=== PATIENT | female | born 1970 | race Caucasian/White ===

== ENCOUNTER → 2022-01-10 11:27 | Outpatient (BNVA) | payer OTHER, MEDICAID, SELFPAY | PROVIDERS: PCP Family Medicine; Visit Provider Family Medicine | DX: Z76.89 Persons encountering health services in other specified circumstances (principal); E03.9 Hypothyroidism, unspecified; E11.9 Type 2 diabetes mellitus without complications; I10 Essential (primary) hypertension | CPT/HCPCS: 80053; 80061; 84439; 84443; 85025 ==

== ENCOUNTER 2022-02-24 08:05 | Outpatient (CLI) | payer MEDICAID, SELFPAY ==
--- NOTE | 2022-02-24 08:12 | MM_ITS ---
WS: [id number] DIAGNOSTIC BILATERAL DIGITAL BREAST TOMOSYNTHESIS MAMMOGRAPHY WITH CAD HISTORY: L breast cyst, R breast Focal asymmetry. Prior negative RIGHT breast biopsy. COMPARISON: 09/08/2021, 09/01/2021, 10/07/2021 TECHNIQUE: Bilateral craniocaudad, mediolateral oblique, and mediolateral views are submitted with to mosynthesis and SM. Computer aided detection utilized. Breast composition: The breasts are heterogeneously dense, which may obscure small masses. Scattered densities in each breast. No suspicious masses are identified. Previously described asymmetry in the RIGHT breast near 9:00 is no longer present. There is an adjacent biopsy clip. No mass within the LE FT breast. No nipple retraction. MM/[place] [id number] IMPRESSION: BI-RADS: 2-Benign FOLLOW UP: 1 Year Follow-up
== END 2022-02-24 08:06 | disposition home or self-care (01) ==
PROVIDERS: PCP Family Medicine; Visit Provider Family Medicine
DX: N60.02 Solitary cyst of left breast (principal); N64.89 Other specified disorders of breast
CPT/HCPCS: 77062; G0279

== ENCOUNTER → 2022-05-05 15:15 | Outpatient (BNVA) | payer BC, MEDICAID, SELFPAY | PROVIDERS: PCP Family Medicine; Visit Provider Family Medicine | DX: E78.5 Hyperlipidemia, unspecified (principal); F41.1 Generalized anxiety disorder; E11.9 Type 2 diabetes mellitus without complications; E03.9 Hypothyroidism, unspecified; I10 Essential (primary) hypertension; G47.00 Insomnia, unspecified; I25.10 Atherosclerotic heart disease of native coronary artery without angina pectoris; Z68.41 Body mass index [BMI] 40.0-44.9, adult; M25.561 Pain in right knee; M25.562 Pain in left knee | CPT/HCPCS: 80053; 83036; 85025 ==

== ENCOUNTER 2022-08-06 09:45 | Emergency (ER) | payer BC, MEDICAID, SELFPAY ==
[2022-08-06 09:56] VITALS: BP 171/104; PULSE 66; TEMP 36.8; O2SAT 94; BMI 41.0
--- NOTE | 2022-08-06 10:21 | XRR_ITS ---
PROCEDURE INFORMATION: Exam: XR Chest Exam date and time: 08/06/2022 10:27 AM Age: 51 years old Clinical indication: Shortness of breath. TECHNIQUE: Imaging protocol: Radiologic exam of the chest. Views: 1 view. COMPARISON: No relevant prior studies available. FINDINGS: Lungs: No pulmonary vascular congestion, pulmonary edema or pneumonia. Pleural spaces: No pleural effusion or pneumothorax. Heart/Mediastinum: The cardiac silhouette is not enlarged. The mediastinal contours are normal. Diaphragm: Mild elevation of the right hemidiaphragm. Bones/joints: No acute osseous abnormality. XR/XR chest 1V 14086 IMPRESSION: No acute finding.
--- NOTE | 2022-08-06 10:21 | ECG_ITS ---
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 Measurements Intervals [place] Rate: 54 P: 24 SD: 216 QRS: -40 QRSD: 109 T: -5 QT: 393 QTc: 375 Interpretive Statements SINUS BRADYCARDIA WITH FIRST DEGREE AV BLOCK LEFT AXIS DEVIATION [QRS AXIS < -30] LOW QRS VOLTAGE IN PRECORDIAL LEADS [QRS DEFLECTION < 1.0 mV IN CHEST LEADS] MINIMAL VOLTAGE CRITERIA FOR LVH, CONSIDER NORMAL VARIANT [MEETS CRITERIA IN ONE OF: R(aVL), S(V1), R(V5), R(V5/V6)+S(V1)] POSSIBLE ANTERIOR MYOCARDIAL INFARCTION , OF INDETERMINATE AGE [30 ms Q WAVE IN V3/V4, OR R < 0.2 mV IN V4] No previous ECG available for comparison Electronically Signed On 08-06-2022 21:07:52 CDT by Tea Campbell M.D. [id number]
--- NOTE | 2022-08-06 11:04 | ED_ITS ---
HPI - General Adult General: Chief complaint: General Medical Stated complaint: hands/feet itch/sob/fatigue Time Seen by Provider: 08/06/22 10:16 Source: patient and family Mode of arrival: ambulatory Limitations: no limitations History of Present Illness: Patient presents emergency department today accompanied by significant other for evaluation treatment of various symptoms. Patient states that for the last several weeks she has been experiencing symptoms of itching to both the palmar and dorsal aspect of her hands and the tops of her feet. She states it is not consistent and comes and goes. She states will often affect just 1 or 2 fingers or, can be her entire hand. She denies any development of redness or rash. Patient also states she has felt generally unwell and uneasy. She has been feeling more short of breath-especially exertional and mentions a previous history of non-STEMI for which she currently has a cardiac stent. She is not having chest pains. She also complains of right-sided neck pain developing today. She feels the area is swollen. She denies any other recent upper respiratory symptoms including nasal congestion, sore throat, or cough. She does report recurrent night sweats. She does complain of some polyarthralgia- especially in the knees. Patient indicates that her mother was diagnosed with lymphoma and her brother was diagnosed with tongue cancer. She states she is very concerned and feels like something is wrong. Review of Systems General: Reports: 10 or more systems reviewed and unremarkable except in HPI and below PFSH ED PFSH: Family History Mother Cancer mother Father Cancer skin Brother Cancer head and neck Other CAD (coronary artery disease) Dementia Diabetes Hyperlipidemia Hypertension Stroke Denies family history of Clotting disorder Psychiatric illness Chronic kidney disease (CKD) Anesthesia complication Bleeding disorder Lung disease Social History Smoking and tobacco status: never smoked Alcohol intake: never Substance/Drug Use: never Adopted: No Caregiver/support person: No Marital status: Number of children: 5 Current occupational status: employed 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 Special tim needs: No Agree to transfusion: Yes Female Reproductive History: Spontaneous abortions: No Physical Exam Const: COMMON NORMALS: no acute distress, patient oriented x3, no limitations and alert HENMT: COMMON NORMALS: normocephalic, atraumatic, hearing grossly normal bilaterally, Normal external nose present and moist oral mucous membranes HEAD & SCALP: normocephalic and atraumatic NOSE: Normal external nose present Eye: COMMON NORMALS: Equal, round and reactive pupils present, EOMs intact bilaterally and conjunctivae normal CONJUNCTIVA: Yes conjunctivae normal P UPIL: Yes Equal, round and reactive pupils present Neck/C-Spine: THYROID: not diffusely enlarged Lymph: LYMPHATIC: no lymphadenopathy noted Resp: COMMON NORMALS: normal respiratory effort, No retractions, No use of accessory muscles and clear to auscultation bilaterally AUSCULTATION: clear to auscultation bilaterally Cardio: COMMON NORMALS: regular rate and regular rhythm RATE: regular rate RHYTHM: regular rhythm GI: COMMON NORMALS: Normal to inspection, nondistended, normoactive bowel sounds present, Soft to palpation and non-tender PALPATION: Yes Soft to palpation Extremity: COMMON NORMALS: full ROM, capillary refill normal and no clubbing, cyanosis or edema Neuro: COMMON NORMALS: patient oriented x3 SENSORIUM/ORIENTATION: Yes alert Skin: COMMON NORMALS: turgor normal, no jaundice and no petechiae; negative for no rashes or lesions noted (No rash but abnormal lesions on upper extremities) GENERAL SKIN EXAM: rashes and/or lesions noted (No rash but abnormal lesions on upper extremities) and turgor normal Course Vital Signs: Vital signs: Vital Signs Temperature 98.3 F 08/06/22 09:56 Pulse Rate 50 L 08/06/22 14:39 Blood Pressure 141/99 08/06/22 14:39 Pulse Oximetry 94 08/06/22 14:39 Oxygen Delivery Me thod Room Air 08/06/22 14:00 MDM - General Adult Medical Decision Making Patient presented to the emergency department today for evaluation treatment of multiple and varied symptoms. Patient seems mostly to have anxiety regarding recent issues with cancer throughout her family. However, patient's lab work revealed no signs of elevated white blood cell count, no cardiac abnormalities consistent with her previous history of NSTEMI, no abnormal thyroid, no anemia, no electrolyte abnormality, no elevated autoimmune markers and no concerns for UTI. Discussed all this with the patient. Patient states that she is concerned about new spots showing up on her arms she does have a history of skin cancers. She does not have a pharmacy grad intern and has not been seen by pharmacy grad intern for quite some time. We did discuss getting her into dermatology and placed referral on her behalf. Patient needs to follow-up with her primary care doctor. Patient indicates she does have a primary care doctor but states with her job it is often hard to be seen. Discussed with her the importance of being seen and evaluated-even offered her a note for work to allow her time off to be seen but, patient declined. Differential Diagnosis DDx: Elevated bilirubin levels, allergic reaction, autoimmune disorder, connective tissue disorder, abnormal thyroid, anemia, RA, NSTEMI, pneumonia Lab Data 08/06/22 10:56 08/06/22 10:56 Radiology Impressions Chest X-Ray 08/06/22 10:21 IMPRESSION: No acute finding. Laboratory Results WBC 8.3 10^3/uL (4.0-10.0) 08/06/22 10:56 RBC 5.54 10^6/uL (4.1-5.3) H 08/06/22 10:56 Hgb 15.3 g/dL (11.5-15.3) 08/06/22 10:56 Hct 46.4 % (37.0-47.0) 08/06/22 10:56 MCV 83.8 fl (81-99) 08/06/22 10:56 MCH 27.6 pg (28.0-34.0) L 08/06/22 10:56 MCHC 33.0 g/dL (30.0-36.0) 08/06/22 10:56 RDW 13.2 % (12.1-15.1) 08/06/22 10:56 Plt Count 184 10^3/cmm (130-400) 08/06/22 10:56 MPV 12.3 fL (7.4-10.4) H 08/06/22 10:56 Neut % (Auto) 69.7 % 08/06/22 10:56 Lymph % (Auto) 23.1 % 08/06/22 10:56 [place] % (Auto) 5.0 % 08/06/22 10:56 Eos % (Auto) 1.1 % 08/06/22 10:56 Baso % (Auto) 0.6 % 08/06/22 10:56 Neut # (Auto) 5.78 10^3/uL (1.8-7.7) 08/06/22 10:56 Lymph # (Auto) 1.9 10^3/uL (0.8-4.8) 08/06/22 10:56 [place] # (Auto) 0.4 10^3/uL (0.2-0.9) 08/06/22 10:56 Eos # (Auto) 0.1 10^3/uL (0.0-0.8) 08/06/22 10:56 Baso # (Auto) 0.1 10^3/uL (0.0-0.1) 08/06/22 10:56 Nucleated RBC % (auto) 0 % 08/06/22 10:56 Nucleated RBCs # 0.0 /100WBC 08/06/22 10:56 Sodium 136 mmol/L (136-145) 08/06/22 10:56 Potassium 3.8 mmol/L (3.5-5.1) 08/06/22 10:56 Chloride 98 mmol/L (98-107) 08/06/22 10:56 Carbon Dioxide 25 mmol/L (22-29) 08/06/22 10:56 Anion Gap 16.8 (5-19) 08/06/22 10:56 BUN 10 mg/dL (6-20) 08/06/22 10:56 Creatinine 0.7 mg/dL (0.5-0.9) 08/06/22 10:56 GFR Calculation 87.9 mL/min (90-130) L 08/06/22 10:56 Glucose 202 mg/dL (65-115) H 08/06/22 10:56 Calculated Osmolality 287 mOsm/kg (285-295) 08/06/22 10:56 Calcium 8.9 mg/dL (8.5-10.5) 08/06/22 10:56 Total Bilirubin 0.7 mg/dL (0.15-1.2) 08/06/22 10:56 AST 29 U/L (0-32) 08/06/22 10:56 ALT 28 U/L (0-33) 08/06/22 10:56 Alkaline Phosphatase 80 U/L (35-105) 08/06/22 10:56 Troponin T Baseline 6 ng/L (0-10) 08/06/22 10:56 Troponin T 120 Minute 6.00 ng/L (0-10) 08/06/22 13:15 Delta Troponin T 0 ABS# (0-10) 08/06/22 13:15 Total Protein 7.4 g/dL (6.6-8.7) 08/06/22 10:56 Albumin 4.1 g/dL (3.5-5.2) 08/06/22 10:56 Globulin 3.3 g/dL (1.3-4.6) 08/06/22 10:56 TSH 1.41 uIU/mL (0.27-4.20) 08/06/22 10:56 Urine Color Straw (Yellow) 08/06/22 10:56 Urine Appearance Clear (CLEAR) 08/06/22 10:56 Urine pH 6.5 (5-7) 08/06/22 10:56 Ur Specific [place] 1.010 (1.005-1.030) 08/06/22 10:56 Urine Protein Neg (Negative) 08/06/22 10:56 Urine Glucose (UA) Norm (Normal) 08/06/22 10:56 Urine Ketones Negative (Negative) 08/06/22 10:56 Urine Blood Neg (Negative) 08/06/22 10:56 Urine Nitrate Negative (Negative) 08/06/22 10:56 Urine Bilirubin Neg (Negative) 08/06/22 10:56 Urine Urobilinogen Norm mg/dL (Negative) 08/06/22 10:56 Ur Leukocyte Esterase Negative (Negative) 08/06/22 10:56 Rheumatoid Factor 10.0 IU/mL (0-14) 08/06/22 10:56 Discharge Plan Discharge Patient Disposition: Home Clinical Impression: Itching of both hands, Acquired hypothyroidism, Non-insulin dependent type 2 diabetes mellitus Condition: Stable Prescriptions: No Action aspirin [Adult Aspirin Regimen] 81 mg tablet,delayed release (DR/EC) 81 mg PO DAILY levocetirizine [Xyzal] 5 mg tablet 5 mg PO DAILY hydrochlorothiazide 25 mg tablet 25 mg PO DAILY Qty: 90 1RF levothyroxine [Levo-T] 200 mcg tablet 200 mcg PO DAILY Qty: 30 5RF sertraline 100 mg tablet 100 mg PO DAILY Qty: 30 5RF lisinopril 40 mg tablet 40 mg PO DAILY Qty: 30 5RF metformin 500 mg tablet extended release 24 hr See Rx Instructions .ROUTE .COMPLEX Qty: 90 1RF Dose Instruction: TAKE 1 TABLET BY MOUTH EVERY DAY Rx Instructions: TAKE 1 TABLET BY MOUTH EVERY DAY alprazolam 2 mg tablet 4 mg PO .qhs Qty: 60 0RF atorvastatin 40 mg tablet 40 mg PO DAILY Qty: 30 1RF Discharge Orders: Discharge ED (Routine); Ordered 08/06/22 Ordered By: Ange Addison Referrals: Torsten Lanier MD [Primary Care Provider] - Discharge Diet: Usual diet Discharge Activity: Resume usual activity Activity Restrictions/Additional Instructions: Chest x-ray showed no acute concerns. Your cardiac evaluation also revealed no signs of any concerns for cardiac involvement at this time. Your thyroid is within normal limits as well as you are hemoglobin. No signs of infection. Urinalysis is clear. Autoimmune markers are within normal limits as well. We still wish to have you follow-up with your primary care doctor for continued monitoring of your symptoms and to continue further investigation as needed. I have requested a follow-up appointment with dermatology through our case management coordinators to continue monitoring for skin irregularities as needed. Coding Level of Care Code ED Radiologic Technology Instructor for Zurdo Atkinson
[2022-08-06 11:13] LABS: Add Urine Microscopic? NO; Charge for UA Resulting for Rev
[2022-08-06 11:16] LABS: Basophils # 0.1 10^3/uL (0.0-0.1); Basophils % 0.6 %; Eosinophils # 0.1 10^3/uL (0.0-0.8); Eosinophils % 1.1 %; Hematocrit 46.4 % (37.0-47.0); Hemoglobin 15.3 g/dL (11.5-15.3); Lymphocytes # 1.9 10^3/uL (0.8-4.8); Lymphocytes % 23.1 %; Mean Corpuscular Hemoglobin 27.6 pg (28.0-34.0); Mean Corpuscular Volume 83.8 fl (81-99); Mean Platelet Volume 12.3 fL (7.4-10.4); Monocytes # 0.4 10^3/uL (0.2-0.9); Neutrophils # 5.78 10^3/uL (1.8-7.7); Neutrophils % 69.7 %; Nucleated Red Blood Cells % 0 %; Platelet Count 184 10^3/cmm (130-400); Red Blood Count 5.54 10^6/uL (4.1-5.3); Red Cell Distribution Width 13.2 % (12.1-15.1); White Blood Count 8.3 10^3/uL (4.0-10.0)
[2022-08-06 11:19] LABS: Urine Appearance Clear (CLEAR); Urine Color Straw (Yellow)
[2022-08-06 11:20] LABS: Bilirubin Urine Neg (Negative); Blood Urine Neg (Negative); Glucose Urine UA Norm (Normal); Ketones Urine Negative (Negative); Leukocyte Esterase Urine Negative (Negative); Nitrate Urine Negative (Negative); Protein Urine Neg (Negative); Urobilinogen Urine Norm (Negative); pH Urine 6.5 (5-7)
[2022-08-06 11:23] VITALS: BP 134/87; PULSE 52; O2SAT 93
[2022-08-06 11:36] LABS: Alanine Aminotransferase 28 U/L (0-33); Albumin Level 4.1 g/dL (3.5-5.2); Alkaline Phosphatase 80 U/L (35-105); Anion Gap 16.8 (5-19); Aspartate Amino Transferase 29 U/L (0-32); Blood Urea Nitrogen 10 mg/dL (6-20); Calcium 8.9 mg/dL (8.5-10.5); Carbon Dioxide 25 mmol/L (22-29); Chloride 98 mmol/L (98-107); Creatinine Clr Calc Pharmacy 133.8083; Globulin 3.3 g/dL (1.3-4.6); Glomerular Filtration Rate 87.9 mL/min (90-130); Glucose 202 mg/dL (65-115); Osmolality Calculated 287 mOsm/kg (285-295); Potassium 3.8 mmol/L (3.5-5.1); Sodium 136 mmol/L (136-145); Thyroid Stimulating Hormone 1.41 uIU/mL (0.27-4.20); Total Bilirubin 0.7 mg/dL (0.15-1.2); Total Protein 7.4 g/dL (6.6-8.7)
[2022-08-06 11:50] LABS: Troponin(5th) Baseline 6 ng/L (0-10)
[2022-08-06 12:00] VITALS: BP 150/93; PULSE 54; O2SAT 94
[2022-08-06 13:00] VITALS: BP 145/96; PULSE 50; O2SAT 95
[2022-08-06 14:00] VITALS: BP 144/93; PULSE 49; O2SAT 95
[2022-08-06 14:18] LABS: Troponin 5 2HR Delta 0 ABS# (0-10)
[2022-08-06 14:39] VITALS: BP 141/99; PULSE 50; O2SAT 94
--- NOTE | 2022-08-07 14:19 | DCPLANNER ---
complaint manager had message to schedule a follow up appointment for patient with dermatology. complaint manager cannot refer patients to dermatology, the referral to dermatology needs to come from patients primary care physician. 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
[2022-08-09 10:49] LABS: Anti-Nuclear Antibody Pattern Nuclear, Speckled; Anti-Nuclear Antibody Screen POSITIVE (NEGATIVE)
== END 2022-08-06 14:41 | disposition home or self-care (01) ==
PROVIDERS: Emergency Provider Physician Assistant; PCP Family Medicine
DX: L29.9 Pruritus, unspecified (principal); E03.9 Hypothyroidism, unspecified; E11.9 Type 2 diabetes mellitus without complications; Z79.82 Long term (current) use of aspirin; Z79.84 Long term (current) use of oral hypoglycemic drugs
CPT/HCPCS: 36415; 71045; 80053; 81003; 84443; 84484; 85025; 86038; 86431; 93005; 99285

== ENCOUNTER → 2022-08-30 16:44 | Outpatient (BNVA) | payer BC, MEDICAID, SELFPAY | PROVIDERS: PCP Family Medicine; Visit Provider Family Medicine | DX: R76.8 Other specified abnormal immunological findings in serum (principal); Z79.899 Other long term (current) drug therapy | CPT/HCPCS: 83036; 85651; 86160; 86162; 86200; 86225; 86235; 86255; 86376; 86431 ==

== ENCOUNTER 2023-06-14 17:04 | Outpatient (CLI) | payer OTHER, SELFPAY ==
[2023-06-14 20:02] LABS: Estmated Average Glucose 100; Hemoglobin A1C 5.1 % (4.0-6.0)
[2023-06-14 20:34] LABS: Free T4 Free Thyroxine 1.31 ng/dL (0.82-1.77); Thyroid Stimulating Hormone 0.06 uIU/mL (0.27-4.20)
== END 2023-06-14 17:05 | disposition home or self-care (01) ==
LOC: LAB 17:07
PROVIDERS: PCP Family Medicine; Visit Provider Family Medicine
DX: E03.9 Hypothyroidism, unspecified (principal)
CPT/HCPCS: 36415; 83036; 84439; 84443

== ENCOUNTER → 2023-08-17 14:06 | Outpatient (BNVA) | payer OTHER, SELFPAY | PROVIDERS: PCP Family Medicine; Visit Provider Family Medicine | DX: C44.91 Basal cell carcinoma of skin, unspecified (principal); E03.9 Hypothyroidism, unspecified; E11.9 Type 2 diabetes mellitus without complications; G47.00 Insomnia, unspecified; F41.1 Generalized anxiety disorder; Z68.41 Body mass index [BMI] 40.0-44.9, adult; I10 Essential (primary) hypertension; N64.4 Mastodynia | CPT/HCPCS: 83036; 84439; 84443 ==

== ENCOUNTER 2023-09-03 12:48 | Outpatient (CLI) | payer OTHER, SELFPAY ==
--- NOTE | 2023-09-03 13:00 | MM_ITS ---
WS: [id number] BILATERAL 3D TOMOSYNTHESIS DIGITAL DIAGNOSTIC MAMMOGRAPHY WITH CAD CLINICAL INFORMATION: BIRADS 4 in 2021 HISTORY: Pain in RIGHT breast COMPARISON: 02/24/2022 TECHNIQUE: Bilateral CC, MLO, and ML views. FINDINGS: Scattered fibroglandular densities bilaterally. No suspicious abnormalities deep to the pain marker R IGHT breast. A few nodular density subareolar similar to previous. Ultrasound of these areas is pendi ng. Biopsy clip RIGHT breast. LEFT breast is unremarkable and unchanged. ULTRASOUND BREAST RIGHT TECHNIQUE: Ultrasound right breast focused area of concern. CLINICAL INFORMATION: BIRADS 4 in 2021 FINDINGS: RIGHT breast area of pain, 6 o'clock position, 4 cm from the nipple, demonstrates normal underlying p arenchymal tissue. No suspicious lesions in this area. Subareolar RIGHT breast ultrasound demonstrates multiple simple appearing breast cysts and Complex cy st with internal debris. Findings have a benign appearance. Recommend return to annual screening mamm ography. MM/[place] [id number] IMPRESSION: BI-RADS: 2-Benign FOLLOW UP: 1 Year Follow-up Recommend return to annual screening mammography.
== END 2023-09-03 12:49 | disposition home or self-care (01) ==
LOC: RAD 12:49
PROVIDERS: PCP Family Medicine; Visit Provider Family Medicine
DX: N64.4 Mastodynia (principal); N60.01 Solitary cyst of right breast
CPT/HCPCS: 76642; 77062; G0279

== ENCOUNTER → 2023-10-25 15:56 | Outpatient (BNVA) | payer OTHER, MEDICAID, SELFPAY | PROVIDERS: PCP Family Medicine; Visit Provider Internal Medicine | DX: I20.0 Unstable angina (principal); I07.1 Rheumatic tricuspid insufficiency | CPT/HCPCS: 93005 ==

== ENCOUNTER 2023-10-25 17:51 | Observation (INO) | payer OTHER, MEDICAID, SELFPAY ==
--- NOTE | 2023-10-25 19:20 | P.HP_ITS ---
Providers/Chief Complaint 2 Admitting Physician: Danny Grady M.D Primary Care Provider: Torsten Lanier MD Chief Complaint: unstable angina History of Present Illness Shivani Montelongo is a 52 year old female with past medical history of CAD and LAD stent placed in 2020 at outside hospital, hypothyroidism, diabetes who was seen today in the office and admitted to hospital with concerns of unstable angina. According to patient she has been having worsening chest pain symptoms for the last about 3 days. Multiple episodes every day of squeezing chest pain and pressure. Feels similar to her prior ACS episode in [place]. Having both exertional and resting chest pains. EKG not showing ST elevation or ischemic changes. Review of Systems 2 Const: Denies: fever(s) or chills Card: Reports: chest pain, palpitations, swelling of feet/ankles (mild), lightheadedness and dyspnea on exertion; Denies: irregular heart rhythm, pre-syncope, orthopnea or leg pain with exertion Resp: Reports: dyspnea; Denies: productive cough or non-productive cough Musc: Denies: neck pain or back pain Neuro: Reports: dizziness; Denies: headache(s) Psych: Denies: anxiety, depression, suicidal ideation or homicidal ideation Jerry/Lymph: Reports: easy bruising and easy bleeding Medications/Allergies Home Medications Medication Instructions Recorded Confirmed Last Taken Type aspirin 81 mg tablet,delayed 81 mg PO QAM 01/10/22 10/26/23 10/25/23 History release (Adult Aspirin Regimen) atorvastatin 40 mg tablet 40 mg PO DAILY #90 tabs 05/20/23 10/26/23 10/25/23 Rx potassium chloride 20 mEq 20 meq PO DAILY #90 tabs 05/20/23 10/26/23 10/25/23 Rx tablet,extended release sertraline 100 mg tablet 100 mg PO DAILY #90 tabs 05/20/23 10/26/23 10/25/23 Rx semaglutide 2 mg/dose (8 mg/3 mL) 2 mg (0.75 mL) SUBCUT .weekly #3 mL 06/11/23 10/26/23 10/22/23 Rx subcutaneous pen injector (Ozempic) alprazolam 2 mg tablet 4 mg PO BEDTIME 10/26/23 10/26/23 10/24/23 History furosemide 40 mg tablet 40 mg PO QAM 10/26/23 10/26/23 10/25/23 History levothyroxine 150 mcg tablet 150 mcg PO QAM 10/26/23 10/26/23 10/25/23 History lisinopril 40 mg tablet 40 mg PO DAILY 10/26/23 10/26/23 10/25/23 History Allergies Allergy/AdvReac Type Severity Reaction Status Date / Time succinylcholine Allergy Intermediate ADR-Muscle Verified 10/25/23 16:10 Pain amoxicillin Allergy Unknown Unknown Verified 10/25/23 16:10 epinephrine Allergy ADR-Shakine Verified 10/25/23 16:10 ss PFSH Acute 2 PFSH: Medical History Hyperlipidemia CAD (coronary artery disease) Essential hypertension Non-insulin dependent type 2 diabetes mellitus Family History Mother Cancer mother Father Cancer skin Brother Cancer head and neck Other CAD (coronary artery disease) Dementia Diabetes Hyperlipidemia Hypertension Stroke Denies family history of Clotting disorder Psychiatric illness Chronic kidney disease (CKD) Anesthesia complication Bleeding disorder Lung disease Social History Smoking and tobacco/nicotine status: former use of tobacco/nicotine Alcohol intake: never Substance/Drug Use: never Adopted: No Caregiver/support person: No Marital status: Number of children: 5 Current occupational status: employed 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 [] NECK: No jugular vein distension. [] HEENT: No cyanosis. No icterus. No pallor. [] HEART: Regular S1 and S2. No murmur, rub or gallop. [] LUNGS: Clear to auscultate bilaterally. [] CENTRAL NERVOUS SYSTEM: Grossly nonfocal. [] EXTREMITIES: Lower extremities with 1+ edema bilaterally. Data 10/25/23 19:59 10/25/23 19:59 A&P Assessment and plan (1) Unstable angina: (2) CAD (coronary artery disease): (3) Essential hypertension: (4) Hyperlipidemia: (5) Non-insulin dependent type 2 diabetes mellitus: Plan Patient has presented with unstable anginal symptoms. Symptoms are worsening and typical. No resting chest pain. Multiple risk factors and prior history of CAD. Will continue on aspirin. Starting anticoagulation with Lovenox. Plan for coronary angiogram with possible PCI tomorrow. N.p.o. after midnight. Ordering echocardiogram We will trend troponins. Attestations 2 Medical Necessity Statement*: Care expected to cross 2 midnights. Patient has presented with symptoms concerning for unstable angina. Plan for coronary angiogram tomorrow with possible PCI Coding Level of Care Code Acute Code for [facility] Fwd Diagnoses Unstable angina I20.0 CAD (coronary artery disease) I25.10 Essential hypertension I10 Hyperlipidemia E78.5 Non-insulin dependent type 2 diabetes mellitus E11.9
--- NOTE | 2023-10-25 19:25 | ECG_ITS ---
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 Measurements Intervals [place] Rate: 65 P: 60 [place]: 216 QRS: -30 QRSD: 110 T: -70 QT: 432 QTc: 450 Interpretive Statements SINUS RHYTHM WITH FIRST DEGREE AV BLOCK LOW QRS VOLTAGE IN PRECORDIAL LEADS [QRS DEFLECTION < 1.0 mV IN CHEST LEADS] POSSIBLE ANTERIOR MYOCARDIAL INFARCTION , OF INDETERMINATE AGE [30 ms Q WAVE IN V3/V4, OR R < 0.2 mV IN V4] Compared to ECG 10/25/2023 16:08:49 Myocardial infarct finding now present Electronically Signed On 10-26-2023 9:09:30 CDT by Danny Grady M.D. [id number]
--- NOTE | 2023-10-25 19:26 | USCV_ITS ---
Shivani Montelongo Age: 52 Gender: F : 1970 Exam Date: 10/25/2023 20:21 Ordering Phys: Danny Grady M.D ([email or web address]) Technologist: CALLIE Exam Location: [facility] [place] Indication: worsening angina BP: 135 / 92 HR: 55 Rhythm: Sinus Technical Quality: Adequate MEASUREMENTS (Male / Female) Normal Values 2D ECHO LV Diastolic Diameter PLAX 4.2 cm 4.2 - 5.9 / 3.9 - 5.3 cm IVS Diastolic Thickness 1.3 cm 0.6 - 1.0 / 0.6 - 0.9 cm LVPW Diastolic Thickness 1.3 cm 0.6 - 1.0 / 0.6 - 0.9 cm LVOT Diameter 1.8 cm LV Ejection Fraction MOD 4C 52.3 % LV Ejection Fraction MOD 2C 70.4 % LV Ejection Fraction 2C AL 69.7 % LA Diameter 3.5 cm Aorta at Sinotubular Diameter 3.1 cm IVC Diameter 1.9 cm M-MODE LA Ao Ratio MM 1.5 AV Cusp Separation MM 2.1 cm DOPPLER AV Peak Velocity 140.0 cm/s LVOT Peak Velocity 92.0 cm/s AV Area Cont Eq vti 2.2 cm squared AV Area Cont Eq pk 1.8 cm squared MV Peak Velocity 95.0 cm/s MV Area PHT 2.7 cm squared Mitral E to A Ratio 0.9 TV Peak E Velocity 50.0 cm/s PV Peak Velocity 89.0 cm/s FINDINGS Left Ventricle Left ventricle is normal size. LV systolic function is normal with EF of 55 to 60%. No regional wall motion abnormalities are seen. Right Ventricle Normal in size and function Right Atrium Normal in size Left Atrium Normal in size Mitral Valve Structurally normal mitral valve. Trace mitral regurgitation Aortic Valve Structurally normal aortic valve. No significant stenosis or regurgitation. Tricuspid Valve Mild tricuspid regurgitation. Insufficient TR jet to calculate RVSP. Pulmonic Valve Not well visualized Pericardium Normal Aorta Normal in size IVC Appears to be normal CONCLUSIONS LV systolic function is normal with EF of 55 to 60%. Trace mitral regurgitation Mild tricuspid regurgitation No comparison studies are available Danny Grady MD (Electronically Signed) Final Date: 26 October 2023 10:47 S
[2023-10-25] MEDS: sodium chloride 0.9% 1,000 ML 75 ML IV (19:56)
[2023-10-25] MEDS: enoxaparin 120 mg/0.8 mL Syringe SUBCUT (19:56)
[2023-10-25 20:33] VITALS: BP 135/92; PULSE 57; O2SAT 91
[2023-10-25 20:35] LABS: Basophils # 0.1 10^3/uL (0.0-0.1); Basophils % 0.8 %; Eosinophils # 0.1 10^3/uL (0.0-0.8); Eosinophils % 1.7 %; Hematocrit 43.1 % (36-47); Lymphocytes # 2.8 10^3/uL (0.8-4.8); Lymphocytes % 36.6 %; Mean Corpuscular HGB Conc 33.6 g/dL (30-55); Mean Corpuscular Hemoglobin 28.3 pg (27-33); Mean Corpuscular Volume 84.2 fl (85-98); Mean Platelet Volume 12.8 fL (7.4-10.4); Monocytes # 0.5 10^3/uL (0.2-0.9); Neutrophils # 4.19 10^3/uL (1.8-7.7); Neutrophils % 54.6 %; Nucleated Red Blood Cells % 0 %; Platelet Count 176 10^3/cmm (157-399); Red Blood Count 5.12 10^6/uL (3.85-5.65); Red Cell Distribution Width 12.9 % (12.1-15.1); White Blood Count 7.66 10^3/uL (3.29-11.43)
[2023-10-25 20:57] LABS: Troponin(5th) Baseline < 6 ng/L (0-10)
[2023-10-25 21:01] LABS: Anion Gap 15.5 (5-19); Blood Urea Nitrogen 21 mg/dL (6-20); Calcium 8.9 mg/dL (8.5-10.5); Carbon Dioxide 27 mmol/L (22-29); Chloride 102 mmol/L (98-107); Creatinine Clr Calc Pharmacy 101.0267; Glomerular Filtration Rate 65.5 mL/min (90-130); Glucose 114 mg/dL (65-115); Osmolality Calculated 296 mOsm/kg (285-295); Potassium 3.5 mmol/L (3.5-5.1); Sodium 141 mmol/L (136-145)
--- NOTE | 2023-10-25 21:36 | ECG_ITS ---
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 Measurements Intervals [place] Rate: 63 P: 44 DC: 217 QRS: -25 QRSD: 117 T: 93 QT: 390 QTc: 399 Interpretive Statements SINUS RHYTHM WITH FIRST DEGREE AV BLOCK BORDERLINE LEFT AXIS DEVIATION [QRS AXIS < -20] MODERATE INTRAVENTRICULAR CONDUCTION DELAY [110+ ms QRS DURATION] NONSPECIFIC T-WAVE ABNORMALITY Compared to ECG 10/25/2023 20:11:57 Intraventricular conduction delay now present T-wave abnormality now present Myocardial infarct finding no longer present Electronically Signed On 10-26-2023 9:10:29 CDT by Danny Grady M.D. [email or web address] [id number]
[2023-10-25 22:40] LABS: Troponin 5 2HR 7.01 ng/L (0-10); Troponin 5 2HR Delta 1.01001 ABS# (0-10)
[2023-10-26] VITALS (24 sets, daily range): BP systolic 108–149; BP diastolic 62–93; PULSE 50–77; RESP 15–27; TEMP 36.6–36.9; O2SAT 91–97; BMI 39.7
--- NOTE | 2023-10-26 01:17 | ECG_ITS ---
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 Measurements Intervals [place] Rate: 60 P: 56 [place]: 232 QRS: -30 QRSD: 120 T: 39 QT: 449 QTc: 450 Interpretive Statements SINUS RHYTHM WITH FIRST DEGREE AV BLOCK MODERATE INTRAVENTRICULAR CONDUCTION DELAY [105+ ms QRS DURATION, 80+ ms Q/S IN V1/V2, NO Q AND 60+ ms R IN I/aVL/V5/V6] NONSPECIFIC T-WAVE ABNORMALITY Compared to ECG 10/25/2023 21:36:02 No significant changes Electronically Signed On 10-26-2023 9:10:02 CDT by Danny Grady M.D. [id number]
[2023-10-26 02:44] LABS: Troponin 5 6HR Delta 0.00001 ng/L (0-12)
[2023-10-26] MEDS: aspirin 325 mg Tablet PO (05:37)
[2023-10-26] MEDS: diphenhydrAMINE 50 mg Capsule PO (05:37)
--- NOTE | 2023-10-26 06:35 | XACV_ITS ---
Exam Room: [facility] Ht: 175 cm Wt: 122 kg BSA: 2.49 m2 Gender: Female : 1970 Any Known Allergies: Other Exam Priority: Routine Procedure(s): Procedure Description: Diagnostic procedure Procedure Description: PCI procedure Procedure Description: Coronary IVUS Procedure Description: Drug Eluting Coronary Stent Procedure Description: PTCA Procedure Description: Miscellaneous Procedure Description: Angio-Seal Procedure Description: ACT Procedure Description: Coronary Angiography Procedure Description: Pressure Wire Diagnostic Cath Status: Urgent Diagnostic Findings * Left Main has no significant disease. * Circumflex has no significant disease. * Right Coronary Artery has no significant disease. * Proximal Left Anterior Descending: moderate 50% stenosis, DEBORAH: 3 flow. Haziness noted. In the mid vessel there is a patent prior stent. * Coronary angiography shows right dominance. PCI Status: Urgent PCI Indication: Other Interventional Findings * Procedure detail: We engaged left main artery with XB 3.5 guide catheter. IV heparin was administered to maintain anticoagulation. After normalization, IFR wire was advanced into distal LAD. Significantly abnormal IFR value of 0.78 was obtained. We then proceeded with PCI of proximal LAD. Stenosis was predilated with 3.0 x 20 mm semicompliant balloon. This was followed by placement of 3.5 x 26 mm resolute Jcarlos drug-eluting stent. We then performed IVUS that showed some underexpansion in the proximal segment of the stent. We postdilated the stent with high pressure inflation of 3.5 x 15 mm NC balloon at 20 jerry. Final angiogram showed excellent stent expansion and no residual stenosis. Guidewire and guide catheter were removed. Patient left the Culinary Director in stable condition. . * Proximal Left Anterior Descendin% stenosis treated with a AB TREK 3.00X20 RX BALLOON, SHARLA R JCARLOS 3.5X26 KRISHNA, and MDT KVNG EUPHORA RX [id number] BALLOON. 0% residual stenosis, DEBORAH: 3 flow. Conclusions 1. Severe proximal LAD stenosis confirmed with iFR valve of 0.78. S/p successful revascularization with 1 stent. 2. Proximal Left Anterior Descending was treated with a Balloon, Drug Eluting Stent, and Balloon. Recommendations * Dual antiplatelet therapy for atleast 1 year. * High intensity statin therapy. * Outpatient cardiology follow up in 4 weeks. Interventional RX Recommendation: PCI w/o planned CABG Anticoagulation: Heparin Pressures Phase:Rest AO : 132 / 72 ( 94 ) @ 8:04:00 AM 119 / 85 ( 102 ) @ 8:05:00 AM 108 / 67 ( 86 ) @ 8:22:00 AM 117 / 72 ( 93 ) @ 8:28:00 AM 113 / 68 ( 88 ) @ 8:32:00 AM Clinical Evaluation EBL: 5mL-10mL Procedural Details Pre-Procedure Time Out. Identified patient by full name and date of as verbalized by the patient/guarantor. Does the consent match the physician's order: Yes. Accurate & Complete Informed Consent: Yes. Inpatient/Outpatient History & Physical on Chart: Yes. If H&P is completed, is and addenduem needed: No; If yes, is the addendum complete: N/A. Visualize and Verify Site with Patient/Guarantor: N/A. Relevant Radiology Images available: Yes. Pre-op teaching completed and patient verbalized understanding. The risks, benefits, and alternatives of sedation and/or procedure were discussed by physician. The patient agrees to continue. Procedure started. Current Diagnosis : Chest Pain. [facility] Clinical Fraility Score: 3: Managing Well. Culinary Director Indications: Worsening Angina. Chest Pain Symptom Assessment: Atypical Angina. Correct patient, site and procedure confirmed by cath team. Current diagnosis: Chest Pain. PERRLA. Strong, equal hand ballet soloist bilaterally. Lungs clear x 5 lobes. IV Site on Arrival: 20 gauge in the left anticubital. IV Fluids: 0.9% NaCl at KVO. 0 mL infused prior to labor relations director. Oxygen started at 2liters/min via nasal canula. bilateral groins was prepped with chloroprep then draped in the usual sterile fashion. Physician notified. Baseline sample Acquired. HR: 58 BPM. Physician arrived. Physician scrubbed in. Immediate Pre-Procedure Time Out. Correct Patient: Yes; Correct Procedure: Yes; Correct Site: Yes; Correct Patient Position: Yes; Correct Supplies: Yes; Dried Flammable Prep: Yes; Blood Products Available: N/A;. Lidocaine 1% infiltrated to the right groin. Arterial access obtained with micropuncture set. A 5 nepalese JL4 catheter in over wire. Multiple views taken of left coronary artery. Catheter removed over the standard wire. A 5 nepalese JR4 catheter in over wire. Multiple views taken of right coronary artery. Catheter removed over the exchange wire. 6 nepalese XB 3.5 guide catheter was inserted over the wire. IFR guidewire was advanced through the guide catheter to lesion in the prox LAD. IFR results: 0.78. ACT drawn. Results 289 seconds. Therapeutic limits - pre-heparin administration 90-150 seconds and monitoring heparin during a vascular procedure >250 seconds. Runthrough guidewire was advanced through the guide catheter to lesion in the prox LAD. IFR wire out. Inflation number : 1 A AB TREK 3.00X20 RX BALLOON was prepped and advanced across the Prox LAD , then inflated to 8 JERRY for 0:15 seconds. Balloon out. Inflation Number : 2 A SHARLA Barcenas JCARLOS 3.5X26 KRISHNA -Lot Number# _[id number] EXP: 06/11/2026 was prepped and advanced across the Prox LAD. The stent was deployed at 12 JERRY for 0:16 seconds. Stent balloon out over wire. Results checked. IVUS catheter inserted and advanced to the LAD. Measurements obtained. IVUS catheter out OTW. Inflation number : 3 A MDT NC EUPHORA RX [id number] BALLOON was prepped and advanced across the Prox LAD , then inflated to 14 JERRY for 0:11 seconds. Inflation number: 4 The MDT NC EUPHORA RX [id number] BALLOON was reinflated across the Prox LAD, to 20 JERRY for 0:13 seconds. Inflation number: 5 The MDT NC EUPHORA RX [id number] BALLOON was reinflated across the Prox LAD, to 20 JERRY for 0:14 seconds. Balloon out. Results checked. Wire out. ACT drawn. Results out of range high seconds. Therapeutic limits - pre-heparin administration 90-150 seconds and monitoring heparin during a vascular procedure >250 seconds. Guide catheter out. A Right femoral angiogram was performed to determine safe placement of closure device. ACT drawn. Results 331 seconds. Therapeutic limits - pre-heparin administration 90-150 seconds and monitoring heparin during a vascular procedure >250 seconds. Lidocaine 1% infiltrated to the right groin. A Angio-Seal VIP ([place]) was successful obtaining hemostatsis at the Right Femoral artery insertion site. Post Procedure: Pulses reassessed and unchanged. PERRLA. Strong, equal hand ballet soloist bilaterally. No VTE prophylaxis required. Medication's Wasted: Lidocaine 1% = 10 mL. Medication's Wasted: Other = Fentanyl 50mcg Versed 1 mg. Total IV fluids: 75 mL. Post-op diagnosis: Stent to LAD. Complications: None. Estimated blood loss: 5mL-10mL. Responsiveness - Normal response to verbal stimuli; alert and oriented, PERRLA. Airway - Unaffected, no intervention required; spontaneous ventilation. Circulation: W/N/L, pulses unchanged. Nausea/Vomiting: No. Procedure completed. Patient transferred by bed to ICU. Vital chart was stopped. Access Site Site: Right Femoral artery Sheath Size: 6 Fr Hemostasis Method: Angio-Seal VIP ([place]) Hemostasis Success: Successful Procedure Medications Start: 7:00 AM Stop: 7:00 AM Medication: Versed Amount: 1 mg Route: I.V. Start: 7:00 AM Stop: 7:00 AM Medication: Fentanyl Amount: 50 mcg Route: I.V. Start: 7:06 AM Stop: 7:06 AM Medication: Versed Amount: 1 mg Route: I.V. Start: 7:06 AM Stop: 7:06 AM Medication: Fentanyl Amount: 50 mcg Route: I.V. Start: 7:10 AM Stop: 7:10 AM Medication: Heparin Amount: 94013 units Route: I.V. Start: 7:22 AM Stop: 7:22 AM Medication: Versed Amount: 1 mg Route: I.V. Start: 7:22 AM Stop: 7:22 AM Medication: Fentanyl Amount: 50 mcg Route: I.V. Start: 7:44 AM Stop: 7:44 AM Medication: Plavix Amount: 600 mg Route: P.O. I, the attending physician, have reviewed and verified all procedure medications. Yes, all medications given per verbal order History/Risk Factors Hypertension: Yes Dyslipidemia: Yes Peripheral Arterial Disease (PAD): No Myocardial Infarction (MT): No Obesity: Yes Renal Disease: No Tobacco Use: Former Prior Interventions PCI: No CABG: No Valve Surgery: No Report Signatures Finalized by Danny Grady MD on 11/08/2023 11:47 AM
--- NOTE | 2023-10-26 06:57 | W.PM.OPSUD ---
Surgery/Procedure H&P Update DATE OF PROCEDURE: October 26, 2023 DATE H&P PERFORMED: 10/25/23 H&P UPDATE INFORMATION: I have reviewed H&P completed within last 30 days, I have examined patient prior to procedure and No changes to prior documentation PREOP DIAGNOSIS: Unstable angina PRIMARY INDICATION FOR PROCEDURE: Unstable angina PLANNED PROCEDURE: Left heart cath with possible percutaneous coronary intervention PATIENT REASSESSED PRIOR TO SEDATION, WITH NO CHANGE NOTED: Yes PHYSICAL EXAM: alert, oriented x 3, clear to auscultation bilaterally and regular rate & rhythm AIRWAY EVAL/ANESTHESIA PLAN: normal airway, ASA III, Local Anesthesia, Risks, benefits & alternatives of sedation and/or procedure discussed and Patient agrees to continue as planned ADDITIONAL INFORMATION: Moderate sedation
--- NOTE | 2023-10-26 09:45 | PM.PN ---
Subjective Subjective: Patient was admitted with unstable angina. Had coronary angiogram performed today that showed moderate to severe proximal LAD stenosis. iFR value of 0.77 which is significantly abnormal. Patient underwent successful revascularization of proximal LAD with 1 stent. Vitals/I&O/Wt Last Vital Signs Temp 98 F 10/26/23 08:49 Pulse 58 L 10/26/23 08:49 Resp 23 H 10/26/23 08:49 BP 115/71 10/26/23 08:49 Pulse Ox 93 10/26/23 08:49 O2 Del Method Room Air 10/26/23 08:49 10/25/23 10/26/23 10/26/23 22:59 06:59 14:59 Intake Total 120 / 120 Balance 120 / 120 Weight last 48 hrs Weight 269 lb Weight 269 lb Physical Exam Narrative: GENERAL: Patient is alert, awake and oriented x3. [] NECK: No jugular vein distension. [] HEENT: No cyanosis. No icterus. No pallor. [] HEART: Regular S1 and S2. No murmur, rub or gallop. [] LUNGS: Clear to auscultate bilaterally. [] CENTRAL NERVOUS SYSTEM: Grossly nonfocal. [] EXTREMITIES: Lower extremities with 1+ edema bilaterally. Data 10/25/23 19:59 10/25/23 19:59 A&P Assessment and plan (1) Unstable angina: (2) CAD (coronary artery disease): (3) Essential hypertension: (4) Hyperlipidemia: (5) Non-insulin dependent type 2 diabetes mellitus: Plan Patient underwent successful revascularization of proximal LAD with 1 stent after abnormal IFR with value of 0.77. Continue with aspirin and Plavix. Echocardiogram ordered. If patient stays stable by tomorrow, will be discharged home. Attestations Medical Necessity Statement*: Care expected to cross 2 midnights. Patient had PCI of proximal LAD today. Coding Level of Care Code Acute Code for [facility] Diagnoses Unstable angina I20.0 CAD (coronary artery disease) I25.10 Essential hypertension I10 Hyperlipidemia E78.5 Non-insulin dependent type 2 diabetes mellitus E11.9
--- NOTE | 2023-10-26 09:58 | PC.CHAP ---
Pastoral Care Encounter/Spiritual Assessment Type of Contact [x] Declined regional telecommunications specialist visit [] Patient/Family/Request visit [] Outpatient visit [] Follow-up visit [] Physician referral [] Code/Alert [] Routine visit [] Staff referral [] Actively dying [] Patient sleeping [] Family support [] [] Out of room [] Palliative care [] [] Receiving care in room [] Pre-surgical visit [] Trauma [] Long length of stay [] ICU visit [] Other: Relational/Emotional Strength [x] Patient feels connected with others/family/visitors/staff [x] Distress [] Loneliness/isolation [] Abandonment Spirituality of Patient [] Person of Sarah [] Attends Islam of their Sarah [] Believes in Prayer [] Reads Bible or Islam materials [x] There are Spiritual issues to be addressed Cod Clerk Interventions [] Prayer [x] Active listening [x] Non-anxious presence [] Spiritual/emotional support [] Crisis/trauma care [] Spiritual counseling [] Bereavement support [] Provided bereavement packet [] Provided Bible/devotional materials [] Provided toy/stuffed animal, coloring book to patient or family member [] Provided Communion [] Anointing/[place] [] Salvation [] Completed spiritual assessment [] Other: Impact on Illness or Injury [] Angry [] Fearful [] Anxious [] Often cries [] Exhaustion [] Unable to work [] Unable to attend orthodox [] Unable to walk/stand [] Unable to read [] Unable to drive [] Unable to eat/drink [] Unable to sleep [] Unable to be with family [] Patient intubated [] Other: Summary Seemed interested at first, then said no thank you, Time spent with patient 2 min
[2023-10-26] MEDS: aspirin 81 mg EC Tablet PO (10:10)
[2023-10-26] MEDS: levothyroxine 150 mcg Tablet PO (10:10)
[2023-10-26] MEDS: sertraline 100 mg Tablet PO (10:19)
[2023-10-26] MEDS: sodium chloride 0.9% 1,000 ML 75 ML IV (10:20)
[2023-10-26 11:21] LABS: Glucose Point of Care 120 mg/dL (70-110)
[2023-10-26] MEDS: isosorbide mononitrate ER 30 mg Tablet PO (12:40)
[2023-10-26] MEDS: ibuprofen 200 mg Tablet 400 MG PO (16:33)
[2023-10-26] MEDS: ondansetron 2 mg/ML SDV 2 mL 4 MG IVP (16:34)
--- NOTE | 2023-10-26 16:45 | PC.NURSE ---
Patient develop a 6/10 headache from imdur she said tylenol don't help the headache and usually takes aleve & 800mg motrin/ibuprofen for headache at home. notified doctor mary that pt develop side effect and verbalizes she will not comply taking this medication. Educated pt that supply chain coordinator does not recommend taking ibuprofen or nsaid that has CAD. Pt verbalizes understanding. Received orders for one time 400 mg ibuprofen and 4 mg zofran ivp.
[2023-10-26] MEDS: ALPRAZolam 0.5 mg Tablet 4 MG PO (18:42)
[2023-10-27] MEDS: acetaminophen 325 mg Tablet 650 MG PO (03:52)
[2023-10-27 04:00] VITALS: BP 121/79; PULSE 56; RESP 20; TEMP 36.6
[2023-10-27 05:48] VITALS: PULSE 56
[2023-10-27] MEDS: levothyroxine 150 mcg Tablet PO (06:19)
[2023-10-27] MEDS: FUROsemide 40 mg Tablet PO (06:19)
--- NOTE | 2023-10-27 07:45 | P.DS_ITS ---
Discharge Providers Date of Admission: 10/25/23 17:51 Date of Discharge: October 27, 2023 Attending Provider at Admission: Danny Grady M.D Attending Provider at Discharge: Danny Grady M.D Primary Care Provider: Torsten Lanier MD Diagnoses at Discharge Discharge Diagnosis (1) Unstable angina: Status: Acute (2) CAD (coronary artery disease): Status: Acute (3) Essential hypertension: Status: Acute (4) Hyperlipidemia: Status: Acute (5) Non-insulin dependent type 2 diabetes mellitus: Status: Acute Reason for Visit Reason for Visit: unstable angina Brief History: Patient was admitted from the office with chest pain suspicious for unstable angina. Hospital Course Hospital Course Troponins and EKGs were negative. Patient underwent angiography yesterday and stent was placed to the LAD. Procedure was done from the right groin. No complications. At the time of discharge the right groin entry site is flat, dry without bleeding or hematoma. Plavix was added to her medication regimen. Otherwise medicines did not change. Physical Exam Narrative: GENERAL: In general she looks and feels well HEENT: Exam within normal limits. NECK: Supple without jugular vein distention. The carotid upstroke is normal without bruits. BACK: Exam normal. LUNGS: Clear. HEART: Regular rate and rhythm. ABDOMEN: Benign without organomegaly or tenderness. EXTREMITIES: No edema. The right groin entry site is flat, dry without hematoma or bleeding. No painful lumps. NEUROLOGIC: Exam normal. SKIN: Unremarkable. Discharge Data Studies Completed and Pending Completed Studies During Hospitalization Category Date Time Status CV. echo complete* [id number] Routine Ultrasound 10/25/23 19:26 Completed Pending at discharge Category Date Time Status DIRECTOR TREASURER request for service Routine Exams 10/26/23 06:35 Taken Basic Metabolic Panel AM LABS Lab 10/27/23 04:00 Ordered Complete Blood Count w/Auto AM LABS Lab 10/27/23 04:00 Ordered Laboratory Results WBC 7.66 10^3/uL (3.29-11.43) 10/25/23 19:59 RBC 5.12 10^6/uL (3.85-5.65) 10/25/23 19:59 Hgb 14.50 g/dL (11.27-16.99) 10/25/23 19:59 Hct 43.1 % (36-47) 10/25/23 19:59 MCV 84.2 fl (85-98) L 10/25/23 19:59 MCH 28.3 pg (27-33) 10/25/23 19:59 MCHC 33.6 g/dL (30-55) 10/25/23 19:59 RDW 12.9 % (12.1-15.1) 10/25/23 19:59 Plt Count 176 10^3/cmm (157-399) 10/25/23 19:59 MPV 12.8 fL (7.4-10.4) H 10/25/23 19:59 Neut % (Auto) 54.6 % 10/25/23 19:59 Lymph % (Auto) 36.6 % 10/25/23 19:59 Clarke % (Auto) 6.0 % 10/25/23 19:59 Eos % (Auto) 1.7 % 10/25/23 19:59 Baso % (Auto) 0.8 % 10/25/23 19:59 Neut # (Auto) 4.19 10^3/uL (1.8-7.7) 10/25/23 19:59 Lymph # (Auto) 2.8 10^3/uL (0.8-4.8) 10/25/23 19:59 Clarke # (Auto) 0.5 10^3/uL (0.2-0.9) 10/25/23 19:59 Eos # (Auto) 0.1 10^3/uL (0.0-0.8) 10/25/23 19:59 Baso # (Auto) 0.1 10^3/uL (0.0-0.1) 10/25/23 19:59 Nucleated RBC % (auto) 0 % 10/25/23 19:59 Nucleated RBCs # 0.0 /100WBC 10/25/23 19:59 Sodium 141 mmol/L (136-145) 10/25/23 19:59 Potassium 3.5 mmol/L (3.5-5.1) 10/25/23 19:59 Chloride 102 mmol/L (98-107) 10/25/23 19:59 Carbon Dioxide 27 mmol/L (22-29) 10/25/23 19:59 Anion Gap 15.5 (5-19) 08/01/24 19:59 BUN 21 mg/dL (6-20) H 10/25/23 19:59 Creatinine 0.9 mg/dL (0.5-0.9) 10/25/23 19:59 GFR Calculation 65.5 mL/min (90-130) L 10/25/23 19:59 Glucose 114 mg/dL (65-115) 10/25/23 19:59 POC Glucose 120 mg/dL (70-110) H 10/26/23 11:16 Calculated Osmolality 296 mOsm/kg (285-295) H 10/25/23 19:59 Calcium 8.9 mg/dL (8.5-10.5) 10/25/23 19:59 Troponin T Baseline < 6 ng/L (0-10) 10/25/23 19:59 Troponin T 120 Minute 7.01 ng/L (0-10) 10/25/23 22:05 Delta Troponin T 1.94149 ABS# (0-10) 10/25/23 22:05 Troponin T Hi Sens 6Hr 6.00 ng/L (0-10) 10/26/23 02:18 Troponin T Hi Sens 6Hr Delta 0.62381 ng/L (0-12) 10/26/23 02:18 Procedures Performed Coronary angiography, LAD stent. Vitals Last Vital Signs Temp 97.8 F 10/27/23 04:00 Pulse 56 L 10/27/23 05:48 Resp 20 H 10/27/23 04:00 BP 121/79 10/27/23 04:00 Pulse Ox 94 10/26/23 23:55 O2 Del Method Room Air 10/26/23 23:55 Discharge Plan Discharge Patient Disposition: Home Condition: Stable Prescriptions: New clopidogrel 75 mg Tablet 75 mg PO DAILY Qty: 90 0RF Continued aspirin [Adult Aspirin Regimen] 81 mg tablet,delayed release (DR/EC) 81 mg PO QAM atorvastatin 40 mg tablet 40 mg PO DAILY Qty: 90 1RF potassium chloride 20 mEq tablet extended release 20 meq PO DAILY Qty: 90 1RF sertraline 100 mg tablet 100 mg PO DAILY Qty: 90 1RF Ozempic 2 mg/dose (8 mg/3 mL) pen injector 2 mg SUBCUT .weekly Qty: 3 3RF Rx Instructions: ON SUNDAY furosemide 40 mg tablet 40 mg PO QAM levothyroxine 150 mcg tablet 150 mcg PO QAM alprazolam 2 mg tablet 4 mg PO BEDTIME lisinopril 40 mg tablet 40 mg PO DAILY Discharge Orders: Discharge Order (Routine); Ordered 10/27/23 Ordered By: Luis Deng Referrals: Celena Medina FNP [Nurse Practitioner] - 7-10 days (Right groin check and chemistry panel.) Discharge Diet: Diabetic Discharge Activity: Increase activity as tolerated and Limit activity as instructed Patient Instructions: Coronary Angioplasty (DC) Activity Restrictions/Additional Instructions: No lifting over 5 pounds for 2 days Discharge Attestations 2 Time Spent in Discharge Care*: greater than 30 min Quality Metrics Clinical Quality Measures [ No reported AMI, CVA or VTE this stay] Coding Level of Care Code 36103 Total time (in minutes) for Discharge: 40 Diagnoses Unstable angina I20.0 CAD (coronary artery disease) I25.10 Essential hypertension I10 Hyperlipidemia E78.5 Non-insulin dependent type 2 diabetes mellitus E11.9
[2023-10-27 08:00] VITALS: BP 134/83; PULSE 52; RESP 14; TEMP 36.6
[2023-10-27] MEDS: aspirin 81 mg EC Tablet PO (08:28)
[2023-10-27] MEDS: sertraline 100 mg Tablet PO (08:28)
[2023-10-27] MEDS: atorvastatin 40 mg Tablet PO (08:28)
[2023-10-27] MEDS: clopidogrel 75 mg Tablet PO (08:28)
[2023-10-27] MEDS: lisinopril 20 mg Tablet 40 MG PO (08:28)
[2023-10-27] MEDS: potassium chloride ER 20 mEq Tablet PO (08:28)
[2023-10-27 08:48] VITALS: BP 134/83; PULSE 52; RESP 14; TEMP 36.6
--- NOTE | 2023-10-27 09:08 | PC.NURSE ---
Patient discharged to home. Instruction provided regarding new medication, follow up needs and site care. Patient verbalized complete understanding. Patient chose to leave ambulatory with significant other at side. Patient denies pain to site. No s/s of bleeding or hematoma formation observed.
== END 2023-10-27 09:00 | disposition home or self-care (01) ==
PROVIDERS: Admitting Provider Internal Medicine; PCP Family Medicine; Visit Provider Internal Medicine
DX: I25.110 Atherosclerotic heart disease of native coronary artery with unstable angina pectoris (principal); I10 Essential (primary) hypertension; E78.5 Hyperlipidemia, unspecified; E11.9 Type 2 diabetes mellitus without complications; Z95.5 Presence of coronary angioplasty implant and graft; E03.9 Hypothyroidism, unspecified; Z87.891 Personal history of nicotine dependence
CPT/HCPCS: 36415; 36416; 80048; 82962; 84484; 85025; 85347; 92978; 93005; 93306; 93454; 93571; 96372; 96374; 96375; 99152; 99153; C1725; C1753; C1760; C1769; C1874; C1887; C1894; C9600; G0269; G0378; G0379; J1644; J1650; J2250; J2405; J3010; J7030; Q0163; Q9967

== ENCOUNTER → 2023-11-21 15:22 | Outpatient (BNVA) | payer OTHER, MEDICAID, SELFPAY | PROVIDERS: PCP Family Medicine; Visit Provider Family Medicine | DX: I10 Essential (primary) hypertension (principal); I25.10 Atherosclerotic heart disease of native coronary artery without angina pectoris | CPT/HCPCS: 80048 ==

== ENCOUNTER 2023-12-18 13:09 | Outpatient (CLI) | payer OTHER, MEDICAID, SELFPAY ==
[2023-12-18 13:35] LABS: Rapid Strep A Test Negative (Negative)
== END 2023-12-18 13:10 | disposition home or self-care (01) ==
LOC: LAB 13:11
PROVIDERS: PCP Family Medicine; Visit Provider Internal Medicine
DX: J02.9 Acute pharyngitis, unspecified (principal)
CPT/HCPCS: 87081; 87880

== ENCOUNTER 2024-01-24 10:31 | Outpatient (CLI) | payer OTHER, MEDICAID, SELFPAY ==
[2024-01-24 10:55] LABS: Basophils # 0.1 10^3/uL (0.0-0.1); Basophils % 0.7 %; Eosinophils # 0.1 10^3/uL (0.0-0.8); Eosinophils % 1.3 %; Hematocrit 46.1 % (36-47); Lymphocytes # 2.4 10^3/uL (0.8-4.8); Lymphocytes % 33.8 %; Mean Corpuscular HGB Conc 33.6 g/dL (30-55); Mean Corpuscular Hemoglobin 28.4 pg (27-33); Mean Corpuscular Volume 84.4 fl (85-98); Monocytes # 0.4 10^3/uL (0.2-0.9); Neutrophils # 4.06 10^3/uL (1.8-7.7); Neutrophils % 57.8 %; Nucleated Red Blood Cells % 0 %; Platelet Count 195 10^3/cmm (157-399); Red Blood Count 5.46 10^6/uL (3.85-5.65); Red Cell Distribution Width 13.6 % (12.1-15.1); White Blood Count 7.02 10^3/uL (3.29-11.43)
[2024-01-24 11:17] LABS: Alanine Aminotransferase 34 U/L (0-33); Albumin Level 4.5 g/dL (3.5-5.2); Alkaline Phosphatase 94 U/L (35-105); Anion Gap 15.1 (5-19); Aspartate Amino Transferase 35 U/L (0-32); Blood Urea Nitrogen 12 mg/dL (6-20); Calcium 8.5 mg/dL (8.5-10.5); Carbon Dioxide 27 mmol/L (22-29); Chloride 102 mmol/L (98-107); Cortisol Random 4.02 ug/dL (2.47-19.5); Globulin 3.1 g/dL (1.3-4.6); Glomerular Filtration Rate 65.2 mL/min (90-130); Glucose 110 mg/dL (65-115); Osmolality Calculated 290 mOsm/kg (285-295); Potassium 4.1 mmol/L (3.5-5.1); Sodium 140 mmol/L (136-145); Thyroid Stimulating Hormone 3.26 uIU/mL (0.27-4.20); Total Bilirubin 0.5 mg/dL (0.15-1.2); Total Protein 7.6 g/dL (6.6-8.7)
[2024-01-24 12:37] LABS: Estmated Average Glucose 131; Hemoglobin A1C 6.2 % (4.0-6.0)
[2024-01-25 07:30] LABS: C-Peptide 7.38 ng/mL (0.80-3.85); Insulin ( Reference Lab Test) 58.3 uIU/mL
== END 2024-01-24 10:32 | disposition home or self-care (01) ==
LOC: LAB 10:32
PROVIDERS: PCP Family Medicine; Visit Provider Internal Medicine
DX: E11.9 Type 2 diabetes mellitus without complications (principal); E78.5 Hyperlipidemia, unspecified; E03.9 Hypothyroidism, unspecified; E16.1 Other hypoglycemia
CPT/HCPCS: 36415; 80053; 82533; 83036; 83525; 84439; 84443; 84681; 85025

== ENCOUNTER → 2024-03-03 11:17 | Outpatient (BNVA) | payer OTHER, MEDICAID, SELFPAY | PROVIDERS: PCP Family Medicine; Referring Provider Internal Medicine; Visit Provider Psychiatry & Neurology Neurology | DX: R25.1 Tremor, unspecified (principal); G25.3 Myoclonus; Z79.899 Other long term (current) drug therapy | CPT/HCPCS: 36415; 82085; 82306; 82550; 82607; 82746; 82977; 83090; 83615; 83735; 83921; 84450; 84460 ==

== ENCOUNTER 2024-03-12 14:16 | Outpatient (CLI) | payer OTHER, BC, MEDICAID, SELFPAY ==
--- NOTE | 2024-03-12 14:30 | MR_ITS ---
WS: [id number] MRI HEAD WITH CONTRAST TECHNIQUE: Sagittal T1, T2 axial, T2 axial FLAIR, axial susceptibility weighted imaging, axial diffus ion weighted images, and coronal T2 images were obtained. Pre and post-T1 axial and post T1 coronal i mages. ADC and FSPGR images. CLINICAL INFORMATION: R25.1 - Tremor, unspecified COMPARISON: None. FINDINGS: No evidence of restricted diffusion to suggest acute ischemia. Ventricular system and basilar cistern s are patent. Normal posterior fossa. Normal vascular flow voids at the skull base. No extra-axial fl uid collections. No evidence of mass or mass effect. Paranasal sinuses and mastoid air cells are well aerated. No hemosiderin on the susceptibility weighted images. Normal optic chiasm and pituitary infundibulum. Temporal lobes and hippocampal formations are normal in appearance. Normal cavernous sinuses and Mec john's cave. No abnormal gadolinium enhancement. Normal dural venous sinuses. Incidental prominent subarachnoid sp aces overlying the cerebral convexities. MR/MR head wo/w con [id number] IMPRESSION: 1. No evidence of restricted diffusion to suggest acute ischemia. 2. No suspicious intracranial signal abnormalities. 3. No hemosiderin on the susceptibility-weighted images. 4. No abnormal gadolinium enhancement. 5. Temporal lobes and hippocampal formations are normal in appearance.
[2024-03-12] MEDS: gadobenate dimeglumine 20 mL vial IV (14:56)
== END 2024-03-12 14:17 | disposition home or self-care (01) ==
LOC: RAD 14:18
PROVIDERS: PCP Family Medicine; Visit Provider Psychiatry & Neurology Neurology
DX: R25.1 Tremor, unspecified (principal); G93.89 Other specified disorders of brain
CPT/HCPCS: 70553

== ENCOUNTER 2024-04-25 07:54 | Outpatient (CLI) | payer BC, MEDICAID, SELFPAY ==
[2024-04-25 10:32] LABS: Follicle Stimulating Hormone 53.1 mIU/mL; Luteinizing Hormone 20.4 mIU/mL (0.5-41.7)
== END 2024-04-25 07:55 | disposition home or self-care (01) ==
LOC: LAB 07:54
PROVIDERS: PCP Family Medicine; Visit Provider Internal Medicine
DX: N95.1 Menopausal and female climacteric states (principal)
CPT/HCPCS: 82672; 83001; 83002

== ENCOUNTER 2024-05-21 07:27 | Outpatient (CLI) | payer OTHER, BC, MEDICAID, SELFPAY ==
[2024-05-21 08:43] LABS: 25 Hydroxy Vitamin D 47 ng/mL (30-100)
[2024-05-21 09:12] LABS: Vitamin B12 1144 pg/mL (232-1245)
== END 2024-05-21 07:28 | disposition home or self-care (01) ==
LOC: LAB 07:29
PROVIDERS: PCP Family Medicine; Visit Provider Psychiatry & Neurology Neurology
DX: E55.9 Vitamin D deficiency, unspecified (principal); G25.3 Myoclonus; E53.8 Deficiency of other specified B group vitamins
CPT/HCPCS: 36415; 82306; 82607; 83921

== ENCOUNTER 2024-06-23 13:22 | Outpatient (CLI) | payer OTHER, BC, SELFPAY ==
[2024-06-23 14:00] LABS: Basophils % 0.7 %; Eosinophils # 0.1 10^3/uL (0.0-0.8); Hematocrit 41.5 % (36-47); Lymphocytes # 1.9 10^3/uL (0.8-4.8); Lymphocytes % 30.6 %; Mean Corpuscular HGB Conc 33.5 g/dL (30-55); Mean Corpuscular Hemoglobin 28.6 pg (27-33); Mean Corpuscular Volume 85.4 fl (85-98); Mean Platelet Volume 12.1 fL (7.4-10.4); Monocytes # 0.4 10^3/uL (0.2-0.9); Monocytes % 6.2 %; Neutrophils # 3.76 10^3/uL (1.8-7.7); Nucleated Red Blood Cells % 0 %; Platelet Count 137 10^3/cmm (157-399); Red Blood Count 4.86 10^6/uL (3.85-5.65); Red Cell Distribution Width 13.6 % (12.1-15.1); White Blood Count 6.15 10^3/uL (3.29-11.43)
[2024-06-23 14:04] LABS: Erythrocyte Sedimentation Rate 5 mm/hr (0-15)
[2024-06-23 14:16] LABS: Estmated Average Glucose 123; Hemoglobin A1C 5.9 % (4.0-6.0)
[2024-06-23 14:24] LABS: Creatinine Urine, Random 184 mg/dL (28-217); Microalbum Creatinine Ratio Ur 5 mg/dL (0-20); Microalbumin Random Urine 1 ug/dL (0-20)
[2024-06-23 14:33] LABS: Alanine Aminotransferase 29 U/L (0-33); Albumin Level 4.1 g/dL (3.5-5.2); Alkaline Phosphatase 73 U/L (35-105); Anion Gap 14.6 (5-19); Aspartate Amino Transferase 25 U/L (0-32); Blood Urea Nitrogen 11 mg/dL (6-20); Calcium 8.8 mg/dL (8.5-10.5); Carbon Dioxide 26 mmol/L (22-29); Chloride 104 mmol/L (98-107); Chol HDL Ratio 3.77 mg/dL (0.0-4.40); Cholesterol 98 mg/dL (0-200); Free T4 Free Thyroxine 1.15 ng/dL (0.82-1.77); Globulin 2.9 g/dL (1.3-4.6); Glomerular Filtration Rate 74.7 mL/min (90-130); Glucose 118 mg/dL (65-115); HDL Cholesterol 26 mg/dL (60-100); LDL Cholesterol Calculated 47 mg/dL (50-129); LDL HDL Ratio 1.81 RATIO (0.00-3.22); Osmolality Calculated 290 mOsm/kg (285-295); Potassium 4.6 mmol/L (3.5-5.1); Sodium 140 mmol/L (136-145); Thyroid Stimulating Hormone 0.32 uIU/mL (0.27-4.20); Total Bilirubin 0.6 mg/dL (0.15-1.2); Triglycerides 126 mg/dL (0-150)
[2024-06-24 07:59] LABS: SCL 70 <1.0 NEG AI (<1.0 NEG); SS A Ro Sjogrens Antibody <1.0 NEG AI (<1.0 NEG); SS-B/LA IGG <1.0 NEG AI (<1.0 NEG)
[2024-06-24 14:04] LABS: Cyclic Citrullinated Peptide <16 UNITS
== END 2024-06-23 13:23 | disposition home or self-care (01) ==
LOC: LAB 13:24
PROVIDERS: PCP Family Medicine; Visit Provider Internal Medicine
DX: R76.8 Other specified abnormal immunological findings in serum (principal); E03.9 Hypothyroidism, unspecified; I10 Essential (primary) hypertension; E11.9 Type 2 diabetes mellitus without complications; E16.1 Other hypoglycemia
CPT/HCPCS: 36415; 80053; 80061; 82044; 83036; 84439; 84443; 85025; 85651; 86038; 86140; 86200; 86235; 86431

== ENCOUNTER 2024-07-24 13:50 | Outpatient (CLI) | payer OTHER, BC, SELFPAY ==
[2024-07-24 14:08] LABS: Basophils # 0.1 10^3/uL (0.0-0.1); Basophils % 0.9 %; Eosinophils # 0.1 10^3/uL (0.0-0.8); Eosinophils % 1.3 %; Lymphocytes # 1.9 10^3/uL (0.8-4.8); Lymphocytes % 27.9 %; Mean Corpuscular HGB Conc 32.8 g/dL (30-55); Mean Corpuscular Hemoglobin 27.8 pg (27-33); Mean Corpuscular Volume 84.6 fl (85-98); Mean Platelet Volume 12.5 fL (7.4-10.4); Monocytes # 0.4 10^3/uL (0.2-0.9); Neutrophils # 4.39 10^3/uL (1.8-7.7); Neutrophils % 63.6 %; Nucleated Red Blood Cells % 0 %; Platelet Count 164 10^3/cmm (157-399); Red Blood Count 5.44 10^6/uL (3.85-5.65); Red Cell Distribution Width 13.5 % (12.1-15.1); White Blood Count 6.89 10^3/uL (3.29-11.43)
== END 2024-07-24 13:51 | disposition home or self-care (01) ==
LOC: LAB 13:52
PROVIDERS: PCP Family Medicine; Visit Provider Internal Medicine Rheumatology
DX: M25.50 Pain in unspecified joint (principal)
CPT/HCPCS: 36415; 83520; 85025

== ENCOUNTER 2024-07-29 13:32 | Outpatient (CLI) | payer OTHER, BC, SELFPAY | END 2024-07-29 13:33 | disposition home or self-care (01) | LOC: LAB 13:35 | PROVIDERS: PCP Family Medicine; Visit Provider Psychiatry & Neurology Neurology | DX: R41.3 Other amnesia (principal) | CPT/HCPCS: 82542; 83520 ==

== ENCOUNTER 2024-09-10 14:40 | Outpatient (CLI) | payer OTHER, BC, SELFPAY ==
--- NOTE | 2024-09-10 14:47 | MM_ITS ---
WS: [id number] Bilateral screening 3D tomosynthesis digital mammogram, 09/10/2024 2:47 PM Clinical Data: SCREENING Comparison: 09/03/2023, 02/24/2022, 09/15/2021, 09/08/2021, 09/01/2021, 06/12/2020. Findings: No spiculated masses or clustered calcifications are seen. There are no secondary signs of carcinoma. There is a biopsy clip in the upper outer quadrant of the right breast unchanged. MM/MM scr BI tomosynthesis [id number] Impression: Negative bilateral mammogram unchanged. Recommend annual screening mammograms. BIRADS: 1 - Negative. FOLLOW UP: 1 Year Follow-up DENSITY: There are scattered areas of fibroglandular density. The CAD wash test checker was used
== END 2024-09-10 14:41 | disposition home or self-care (01) ==
PROVIDERS: PCP Family Medicine; Visit Provider Family Medicine
DX: Z12.31 Encounter for screening mammogram for malignant neoplasm of breast (principal)
CPT/HCPCS: 77063; 77067

== ENCOUNTER 2024-10-10 07:19 | Outpatient (CLI) | payer OTHER, BC, SELFPAY ==
--- NOTE | 2024-10-10 | ECG_ITS ---
Humble Bundle Test Date: 2024-10-10 Pat Name: Shivani Montelongo Department: Room: Gender: Female Back Pad Inspector: : 1970 Requested By: Danny Grady Order Number: [id number] Gardiner MD: Danny Grady M.D. Interpretive Statements EXERCISE MIBI EXERCISE DATA: The patient was exercised by Alexander protocol. Baseline heart rate was 82 beats per minute. Baseline blood pressure was 132/95 millimeters of mercury. Maximal predicted heart rate was 166 beats per minute. Maximum heart rate achieved was 153, which was 92% of the maximum predicted heart rate. Maximum blood pressure was 206/99 millimeters of mercury. Total exercise time was 8 minutes and 32 seconds. Maximum METs achieved was 11.1. The reason for ending the test was completion of protocol. The patient complained of shortness of breath during the stress test, which then resolved at the end of the test. ELECTROCARDIOGRAM: BASELINE: Showed sinus rhythm, no significant ST-T changes at the baseline noted. [] EXERCISE: At the peak exercise level, [] No significant ST-T changes suggestive of ischemia noted. [] RECOVERY: During the recovery period, heart rate dropped appropriately. No significant ST-T changes in the recovery suggestive of ischemia noted. [] CONCLUSION: 1. Exercise capacity is good. 2. Heart rate response was appropriate 3. Blood pressure response was appropriate 4. Symptoms not suggestive of ischemia. 5. Electrocardiogram portion of the stress test was not suggestive of ischemia. 6. Nuclear scan will be documented separately. Electronically Signed On 10-21-2024 11:24:03 CDT by Danny Grady M.D. [email or web address]
[2024-10-10 07:33] VITALS: BMI 39.1
--- NOTE | 2024-10-10 07:37 | NMCV_ITS ---
NM jeremiah perf SPECT r/s* [id number] Shivani Montelongo Age: 53 Gender: F : 1970 Exam Date: 10/10/2024 08:17 Ordering Phys: Danny Grady M.D ([email or web address]) Technologist: NELSON Cortez Exam Location: [facility] Indications: cp STRESS TEST Please see separate stress test report in [facility] for full findings IMAGE PROTOCOL Rest/Stress 1 Exercise Day Radiopharmaceutical Dose (mCi) Administration Site Administered by Rest: Tc-99m 10.5 IV NELSON Cortez Sestamibi Stress:Tc-99m 32.8 IV NELSON Cortez Sestamibi Rest: 10-Oct-2024 60 Discovery 630 Stress: 10-Oct-2024 15 Discovery 630 Radiopharmaceutical was injected at 85 % maximum heart rate. Images obtained in supine and prone position. SPECT RESULTS Technical Quality: Good Raw Data Analysis: Normal Image Corrections: No attenuation or motion correction applied Summed Stress Score: 3 Summed Rest Score: 4 Summed Difference Score: 0 PERFUSION FINDINGS Small to medium sized areas of fixed perfusion defect seen in apical and apical lateral wall. 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 FUNCTIONAL RESULTS (calculated via Gated SPECT) Stress Image LV EF (%): 74 Stress EDV (mL):94 TID: 0.85 Stress ESV (mL):24 FUNCTIONAL FINDINGS: There is normal left ventricular systolic function. IMPRESSIONS 1. Abnormal myocardial perfusion imaging with small to medium sized area of prior infarct with no significant yanet-infarct ischemia in apical and apical lateral valdovinos. 2. LV systolic function is normal Danny Grady MD (Electronically Signed) Final Date: 10 October 2024 11:19 S
[2024-10-10 09:17] VITALS: BP 181/72; PULSE 89
== END 2024-10-10 07:20 | disposition home or self-care (01) ==
LOC: CDL 07:21
PROVIDERS: PCP Family Medicine; Visit Provider Internal Medicine
DX: R07.9 Chest pain, unspecified (principal); R93.1 Abnormal findings on diagnostic imaging of heart and coronary circulation
CPT/HCPCS: 36415; 78452; 93017; A9500

== ENCOUNTER 2024-10-23 13:38 | Outpatient (CLI) | payer OTHER, BC, SELFPAY ==
--- NOTE | 2024-10-23 13:45 | MR_ITS ---
WS: [id number] MRA CAROTID ARTERIES HISTORY: G50.0 - Trigeminal neuralgia COMPARISON: None available. TECHNIQUE: MRA is performed with intravenous gadolinium. MIP and source images are reviewed. Right: Normal RIGHT carotid artery. No stenosis at the bifurcation. Left: Normal LEFT carotid artery. No stenosis at the bifurcation. Subclavian Arteries: Normal. Vertebral Arteries: Vertebral arteries are both patent. LEFT vertebral artery slightly dominant. No stenosis. MR/MR angio neck w con* [id number] IMPRESSION: Normal MR angiogram carotid arteries.
--- NOTE | 2024-10-23 14:30 | MR_ITS ---
WS: [id number] MRA ANGIOGRAPHY [place] OF [place] HISTORY: G50.0 - Trigeminal neuralgia COMPARISON: None available. TECHNIQUE: 3-D MR angiography is performed of the [place] of [place]. All images are reviewed including source images. Distal vertebral and basilar arteries are intact with no significant stenosis or plaque. Mildly dominant LEFT vertebral artery. Posterior cerebral arteries are normal course and caliber. Posterior communicating arteries are both patent. Intracranial portion of the internal carotid arteries are normal course and caliber. No significant atherosclerosis, stenosis or aneurysm identified. Middle and anterior cerebral arteries are both patent with no significant disease. Anterior communicating artery is also normal. MR/MR angio head wo con [id number] IMPRESSION: Normal MRA [place] of [place].
[2024-10-23] MEDS: gadobenate dimeglumine 20 mL vial IV (14:45)
== END 2024-10-23 13:39 | disposition home or self-care (01) ==
LOC: RAD 13:39
PROVIDERS: PCP Family Medicine; Visit Provider Psychiatry & Neurology Neurology
DX: G50.0 Trigeminal neuralgia (principal)
CPT/HCPCS: 70544; 70548

== ENCOUNTER 2024-11-05 07:33 | Outpatient (CLI) | payer OTHER, BC, SELFPAY ==
[2024-11-05 08:05] LABS: Glucose Urine UA Negative (Normal); Specific Gravity, Urine 1.026 (1.005-1.030)
[2024-11-05 08:07] LABS: Add Urine Microscopic? YES
== END 2024-11-05 07:34 | disposition home or self-care (01) ==
PROVIDERS: PCP Family Medicine; Visit Provider Internal Medicine
DX: N39.0 Urinary tract infection, site not specified (principal)
CPT/HCPCS: 81001

== ENCOUNTER 2024-11-05 14:35 | Outpatient (CLI) | payer OTHER, BC, SELFPAY | END 2024-11-05 14:36 | disposition home or self-care (01) | LOC: LAB 11-08 10:40 | PROVIDERS: PCP Family Medicine; Visit Provider Internal Medicine | DX: R32 Unspecified urinary incontinence (principal); R39.9 Unspecified symptoms and signs involving the genitourinary system | CPT/HCPCS: 81000 ==

== ENCOUNTER 2025-02-04 10:01 | Outpatient (CLI) | payer OTHER, BC, SELFPAY ==
[2025-02-04 10:37] LABS: Hematocrit 47.5 % (36-47); Hemoglobin 15.70 g/dL (11.27-16.99); Mean Corpuscular HGB Conc 33.1 g/dL (30-55); Mean Corpuscular Hemoglobin 28.3 pg (27-33); Mean Corpuscular Volume 85.7 fl (85-98); Nucleated Red Blood Cells % 0 %; Platelet Count 165 10^3/cmm (157-399); Red Blood Count 5.54 10^6/uL (3.85-5.65); White Blood Count 6.98 10^3/uL (3.29-11.43)
[2025-02-04 11:03] LABS: Estmated Average Glucose 117; Hemoglobin A1C 5.7 % (4.0-6.0)
[2025-02-04 11:13] LABS: Alanine Aminotransferase 46 U/L (0-33); Albumin Level 4.4 g/dL (3.5-5.2); Alkaline Phosphatase 88 U/L (35-105); Anion Gap 13.9 (5-19); Aspartate Amino Transferase 45 U/L (0-32); Blood Urea Nitrogen 13 mg/dL (6-20); Calcium 9.3 mg/dL (8.5-10.5); Carbon Dioxide 28 mmol/L (22-29); Chloride 104 mmol/L (98-107); Free T4 Free Thyroxine 1.28 ng/dL (0.82-1.77); Globulin 3.0 g/dL (1.3-4.6); Glucose 115 mg/dL (65-115); Osmolality Calculated 293 mOsm/kg (285-295); Potassium 4.9 mmol/L (3.5-5.1); Sodium 141 mmol/L (136-145); Thyroid Stimulating Hormone 1.04 uIU/mL (0.27-4.20); Total Protein 7.4 g/dL (6.6-8.7)
== END 2025-02-04 10:02 | disposition home or self-care (01) ==
LOC: LAB 10:03
PROVIDERS: PCP Family Medicine; Visit Provider Family Medicine
DX: E11.9 Type 2 diabetes mellitus without complications (principal); I10 Essential (primary) hypertension; E03.9 Hypothyroidism, unspecified
CPT/HCPCS: 36415; 80053; 83036; 84439; 84443; 85025